=== PATIENT | male | born 1940 | race Caucasian/White ===

== ENCOUNTER 2024-03-21 11:43 | Inpatient (IN) | payer BC, OTHER ==
[~2024-03-21] VITALS: Ht 177.8 cm; Wt 71.7 kg
[2024-03-21 12:45] VITALS: PULSE 97; RESP 18; O2SAT 93
[2024-03-21 12:53] LABS: Basophils # (auto) 0 10 ^3/uL (0-0.2); Basophils % (auto) 0.2 % (0.0-2.0); Eosinophils # (auto) 0 10 ^3/uL (0-0.8); Hematocrit 30.5 % (41.0-53.0); Hemoglobin 9.8 g/dL (13.5-17.5); Lymphocytes % (auto) 7.8 % (10.0-50.0); Mean Corpuscular Hgb Conc. 32.1 g/dL (32.0-36.0); Mean Corpuscular Volume 96.7 fL (80.0-100.0); Monocytes # (auto) 1.4 10 ^3/uL (0-1.3); Monocytes % (auto) 10.8 % (0.0-12.0); Neutrophils # (auto) 10.6 10 ^3/uL (1.6-8.6); Neutrophils % (auto) 81.2 % (37.0-80.0); Red Blood Cells 3.15 10^6/uL (4.5-5.90); Red Cell Distribution Width 16.8 % (11.8-14.3)
[2024-03-21] MEDS: ONDANSETRON HCL 4 MG/2 ML VIAL IV ONE (12:58)
[2024-03-21] MEDS: methylPREDNISolone SOD SUCC 125 MG/2 ML VL IV ONE (12:58)
[2024-03-21] MEDS: FUROSEMIDE 40 MG/4 ML VIAL IV ONE (12:58)
[2024-03-21] MEDS: MORPHINE SULFATE INJ 2 MG/ml SYRG IV ONE (12:59)
[2024-03-21 13:11] LABS: Alanine Aminotransferase 12 U/L (7-40); Albumin 3.3 g/dL (3.2-4.8); Alkaline Phosphatase 77 U/L (46-116); Anion Gap 5 (5-15); Aspartate Aminotransferase 31 U/L (13-40); BUN/Creatinine Ratio 12.3 (10.0-20.0); Bilirubin, Total 0.3 mg/dL (0.2-1.0); Blood Urea Nitrogen 13 mg/dL (9-23); Calcium 9.1 mg/dL (8.5-10.1); Carbon Dioxide 23 mmol/L (20-30); Chloride 109 mmol/L (98-107); Glucose 104 mg/dL (74-106); Potassium 3.9 mmol/L (3.5-5.1); Sodium 137 mmol/L (136-145); Total Protein 6.9 g/dL (5.7-8.2)
[2024-03-21] MEDS: ALBUTEROL SULF 2.5 MG/0.5ML(0.5%) NEB SOLN NEB ONE (13:25)
[2024-03-21] MEDS: IPRATROPIUM BROM 0.5 MG/2.5ML INH SOL NEB ONE (13:26)
[2024-03-21 14:06] LABS: Urine Bacteria None Seen /hpf (None Seen)
[2024-03-21] MEDS: IOHEXOL 350 MG/ML 100ML IJ ONE (14:14)
[2024-03-21] MEDS ORDERED: ALBUTEROL SULF 2.5 MG/0.5ML(0.5%) NEB SOLN NEB SCH (14:15)
[2024-03-21] MEDS ORDERED: IPRATROPIUM BROM 0.5 MG/2.5ML INH SOL NEB SCH (14:15)
[2024-03-21 14:27] LABS: Urine Blood Negative /uL (Negative); Urine Clarity Clear (Clear); Urine Color Light-Yellow (Yellow); Urine Mucus FEW (None Seen); Urine Protein, UAD TRACE (Negative); Urine Specific Gravity 1.013 (1.001-1.035); Urine Urobilinogen Normal (Negative); Urine WBC 1 /hpf (0 - 3)
[2024-03-21 15:29] LABS: Base Excess -2.2 mmol/L (-2.0-2.0)
[2024-03-21] MEDS: methylPREDNISolone SOD SUCC 125 MG/2 ML VL IV SCH (15:29)
[2024-03-21 16:05] VITALS: BP 118/82; PULSE 89; RESP 16; TEMP 97.9; O2SAT 92
[2024-03-21 18:26] VITALS: PULSE 68; RESP 20; O2SAT 98
[2024-03-21] MEDS: IPRATROPIUM BROM 0.5 MG/2.5ML INH SOL NEB SCH (18:26)
[2024-03-21] MEDS: ALBUTEROL SULF 2.5 MG/0.5ML(0.5%) NEB SOLN NEB SCH (18:26)
[2024-03-21 18:36] VITALS: PULSE 74; RESP 20; O2SAT 100
[2024-03-21 21:54] VITALS: BP 125/57; PULSE 58; RESP 20; TEMP 97.6; O2SAT 97
[2024-03-21] MEDS: FUROSEMIDE 40 MG/4 ML VIAL IV SCH (22:20)
[2024-03-21] MEDS: SODIUM CHLOR 0.9% PF (SALINE LOCK) 10ML VIAL/SYR IV SCH (22:20)
[2024-03-21] MEDS: HYDROmorphone HCL 2 MG/ML VL/or syr IV PRN (22:21)
[2024-03-22] VITALS (13 sets, daily range): BP systolic 111–131; BP diastolic 58–66; PULSE 40–106; RESP 16–20; TEMP 97.3–98.2; O2SAT 91–100
[2024-03-22] MEDS: cefTRIAXone 1GM/50ML D5W 50 ML IV SCH (09:29)
[2024-03-22] MEDS: ENOXAPARIN SOD 40 MG/0.4 ML SYRINGE SC SCH (09:32)
[2024-03-22] MEDS: NICOTINE 14 MG/24HR TOPICAL PATCH TD SCH (09:33)
[2024-03-22] MEDS: HYDROcodone-ACET 5/325MG TAB PO PRN (11:27)
[2024-03-22] MEDS: AZITHROMYCIN 500MG/ 250ML 250 ML IV SCH (11:28)
[2024-03-22] MEDS: ENOXAPARIN SOD 80 MG/0.8ML SYRINGE SC SCH (21:05)
[2024-03-23] VITALS (16 sets, daily range): BP systolic 71–143; BP diastolic 63–79; PULSE 55–99; RESP 16–20; TEMP 97.6–98.3; O2SAT 91–98
[2024-03-23 08:32] LABS: INR 1.12 (0.9-1.15); Partial Thromboplastin Time 28.3 SEC (24.5-34.5); Prothrombin Time 11.8 sec (9.3-11.8)
[2024-03-23] MEDS: POTASSIUM CHL 20 Meq TABLET PO ONE (13:17)
[2024-03-23] MEDS: METOPROLOL TARTRATE 25 MG TAB PO SCH (13:18)
[2024-03-23 15:20] LABS: Body Fluid Red Blood Cells 1500 CUMM (0-2000)
[2024-03-23] MEDS: ONDANSETRON HCL 4 MG/2 ML VIAL IV PRN (16:22)
[2024-03-23 17:43] LABS: Body Fluid Polymorphonuclear 70 % (0-25)
[2024-03-23] MEDS: methylPREDNISolone SOD SUCC 40 MG/ML VL IV SCH (20:12)
[2024-03-24] VITALS (21 sets, daily range): BP systolic 109–130; BP diastolic 56–79; PULSE 52–102; RESP 16–24; TEMP 97.5–98.2; O2SAT 94–100
[2024-03-24 06:45] LABS: Chloride 104 mmol/L (98-107); Sodium 139 mmol/L (136-145)
[2024-03-24 06:46] LABS: Anion Gap 3 (5-15); Calcium 8.8 mg/dL (8.7-10.4); Carbon Dioxide 32 mmol/L (20-30)
[2024-03-24 06:49] LABS: Basophils # (auto) 0 10 ^3/uL (0-0.2); Eosinophils # (auto) 0 10 ^3/uL (0-0.8); Hematocrit 30.2 % (41.0-53.0); Hemoglobin 9.8 g/dL (13.5-17.5); Lymphocytes # (auto) 0.5 10 ^3/uL (0.4-5.4); Lymphocytes % (auto) 4.9 % (10.0-50.0); Mean Corpuscular Hemoglobin 30.8 pg (28.0-32.0); Mean Corpuscular Hgb Conc. 32.4 g/dL (32.0-36.0); Mean Corpuscular Volume 95.1 fL (80.0-100.0); Monocytes # (auto) 0.6 10 ^3/uL (0-1.3); Monocytes % (auto) 6.1 % (0.0-12.0); Neutrophils # (auto) 9.3 10 ^3/uL (1.6-8.6); Red Blood Cells 3.17 10^6/uL (4.5-5.90); Red Cell Distribution Width 16.6 % (11.8-14.3); White Blood Cell 10.5 10^3/uL (4.4-10.8)
[2024-03-24 06:51] LABS: BUN/Creatinine Ratio 32.1 (10.0-20.0); Blood Urea Nitrogen 34 mg/dL (9-23); Glucose 130 mg/dL (74-106); Magnesium 1.8 mg/dL (1.6-2.6)
[2024-03-24 07:14] LABS: Body Fluid White Blood Cells 114250 CUMM (0-200)
[2024-03-24 08:06] LABS: AFP Serum Tumor Marker <1.8 ng/mL (0.0-6.4); PSA Free <0.02 ng/mL; Prostate Specific Antigen <0.1 ng/mL (0.0-4.0)
[2024-03-24] MEDS: DOCUSATE SOD 100 MG CAP PO PRN (09:51)
[2024-03-24] MEDS: SACUBITRIL-VALSARTAN 24mg/26mg TAB PO SCH (09:52)
[2024-03-24] MEDS: POTASSIUM CHL 20 Meq TABLET PO SCH (09:52)
[2024-03-24] MEDS: PIPERACILLIN-TAZOB 3.375GM 100 ML IV SCH (14:07)
[2024-03-24] MEDS ORDERED: TAMS0.4C36 PO (15:07)
[2024-03-24] MEDS ORDERED: LOSA-534 PO (15:07)
[2024-03-24] MEDS ORDERED: CYAN100056 PO (15:07)
[2024-03-24] MEDS ORDERED: ATOR10TA52 PO (15:07)
[2024-03-24] MEDS ORDERED: ALEN70TA74 PO (15:07)
[2024-03-24] MEDS ORDERED: ACET300T57 PO (15:07)
[2024-03-24] MEDS ORDERED: FINA5TAB4 PO (15:07)
[2024-03-25] VITALS (16 sets, daily range): BP systolic 92–132; BP diastolic 45–60; PULSE 37–78; RESP 12–21; TEMP 97.3–98.9; O2SAT 90–100
[2024-03-25 07:09] LABS: Anion Gap 2 (5-15); Calcium 8.2 mg/dL (8.5-10.1); Carbon Dioxide 30 mmol/L (20-30); Chloride 107 mmol/L (98-107); Potassium 3.6 mmol/L (3.5-5.1); Sodium 139 mmol/L (136-145)
[2024-03-25 07:15] LABS: BUN/Creatinine Ratio 26.8 (10.0-20.0); Blood Urea Nitrogen 30 mg/dL (9-23); Glucose 146 mg/dL (74-106)
[2024-03-25] MEDS: FUROSEMIDE 40 MG/4 ML VIAL IV SCH (10:23)
[2024-03-25] MEDS: CARVEDILOL 3.125 MG TAB PO SCH (10:27)
[2024-03-25 15:19] LABS: Body Fluid Polymorphonuclear 70 % (0-25); Body Fluid Red Blood Cells 2280 CUMM (0-2000); Body Fluid White Blood Cells 183000 CUMM (0-200)
[2024-03-26] VITALS (12 sets, daily range): BP systolic 114–162; BP diastolic 63–82; PULSE 44–88; RESP 12–22; TEMP 97.5–99.1; O2SAT 93–100
[2024-03-26] MEDS: TEMAZEPAM 15 MG CAP PO ONE (01:12)
[2024-03-26] MEDS: LIDOCAINE 5% TOPICAL PATCH TOP ONE (11:38)
[2024-03-27] VITALS (18 sets, daily range): BP systolic 120–158; BP diastolic 50–88; PULSE 53–81; RESP 12–18; TEMP 97.3–98.3; O2SAT 93–100
[2024-03-27] MEDS: LIDOCAINE 5% TOPICAL PATCH TOP SCH (09:28)
[2024-03-28] VITALS (19 sets, daily range): BP systolic 96–149; BP diastolic 56–88; PULSE 54–101; RESP 14–18; TEMP 97.3–97.7; O2SAT 92–100
[2024-03-28 05:57] LABS: Anion Gap 6 (5-15); Carbon Dioxide 27 mmol/L (20-30); Chloride 106 mmol/L (98-107); Potassium 4.1 mmol/L (3.5-5.1); Sodium 139 mmol/L (136-145)
[2024-03-28 05:58] LABS: Calcium 9.2 mg/dL (8.5-10.1)
[2024-03-28 06:02] LABS: Glucose 154 mg/dL (74-106)
[2024-03-28 06:03] LABS: BUN/Creatinine Ratio 24.4 (10.0-20.0); Blood Urea Nitrogen 30 mg/dL (9-23)
[2024-03-28] MEDS: FUROSEMIDE 40 MG TAB PO SCH (12:48)
[2024-03-29] VITALS (14 sets, daily range): BP systolic 101–138; BP diastolic 56–85; PULSE 64–111; RESP 14–20; TEMP 97.4–98.1; O2SAT 94–100
[2024-03-29] MEDS: AMIODARONE HCL 200 MG TAB PO SCH (10:15)
[2024-03-29] MEDS: MORPHINE SULFATE INJ 2 MG/ml SYRG IV PRN (12:13)
[2024-03-30] VITALS (15 sets, daily range): BP systolic 93–114; BP diastolic 45–67; PULSE 58–76; RESP 14–18; TEMP 97.4–98.2; O2SAT 93–100
[2024-03-30 07:11] LABS: Alkaline Phosphatase 54 U/L (46-116); Anion Gap 6 (5-15); BUN/Creatinine Ratio 28.6 (10.0-20.0); Blood Urea Nitrogen 52 mg/dL (9-23); Calcium 8.9 mg/dL (8.5-10.1); Carbon Dioxide 27 mmol/L (20-30); Chloride 106 mmol/L (98-107); Glucose 142 mg/dL (74-106); Sodium 139 mmol/L (136-145)
[2024-03-30 07:12] LABS: Albumin 2.9 g/dL (3.2-4.8); Aspartate Aminotransferase 29 U/L (13-40)
[2024-03-30 07:13] LABS: Bilirubin, Total 0.4 mg/dL (0.2-1.0); Total Protein 5.4 g/dL (5.7-8.2)
[2024-03-30 07:16] LABS: Alanine Aminotransferase < 9 U/L (7-40)
[2024-03-30] MEDS: SODIUM CHLORIDE 0.9% 1,000 ML IV SCH (11:45)
[2024-03-30 12:48] LABS: Magnesium 2.4 mg/dL (1.6-2.6)
[2024-03-30] MEDS: methylPREDNISolone SOD SUCC 40 MG/ML VL IV SCH (21:34)
[2024-03-30] MEDS: CARVEDILOL 3.125 MG TAB PO SCH (22:00)
[2024-03-31] VITALS (13 sets, daily range): BP systolic 90–113; BP diastolic 40–65; PULSE 56–83; RESP 17–22; TEMP 97.4–98; O2SAT 91–100
[2024-03-31 05:29] LABS: Basophils # (auto) 0 10 ^3/uL (0-0.2); Basophils % (auto) 0.1 % (0.0-2.0); Eosinophils # (auto) 0 10 ^3/uL (0-0.8); Hemoglobin 7.2 g/dL (13.5-17.5); Lymphocytes # (auto) 0.8 10 ^3/uL (0.4-5.4); Monocytes # (auto) 0.4 10 ^3/uL (0-1.3); Nucleated Red Blood Cells % 0.1 %
[2024-03-31 05:32] LABS: Hematocrit 22.4 % (41.0-53.0); Lymphocytes % (auto) 5.5 % (10.0-50.0); Mean Corpuscular Hemoglobin 30.7 pg (28.0-32.0); Mean Corpuscular Hgb Conc. 32.2 g/dL (32.0-36.0); Mean Corpuscular Volume 95.3 fL (80.0-100.0); Monocytes % (auto) 2.5 % (0.0-12.0); Neutrophils # (auto) 14.2 10 ^3/uL (1.6-8.6); Neutrophils % (auto) 91.9 % (37.0-80.0); Red Blood Cells 2.35 10^6/uL (4.5-5.90); Red Cell Distribution Width 17.6 % (11.8-14.3); White Blood Cell 15.4 10^3/uL (4.4-10.8)
[2024-03-31 05:42] LABS: Chloride 108 mmol/L (98-107); Potassium 3.7 mmol/L (3.5-5.1); Sodium 139 mmol/L (136-145)
[2024-03-31 05:43] LABS: Anion Gap 4 (5-15); Calcium 8.1 mg/dL (8.5-10.1); Carbon Dioxide 27 mmol/L (20-30)
[2024-03-31 05:48] LABS: BUN/Creatinine Ratio 30.6 (10.0-20.0); Blood Urea Nitrogen 49 mg/dL (9-23); Glucose 145 mg/dL (74-106)
[2024-03-31] MEDS: ENOXAPARIN SOD 30 MG/0.3 ML SYRINGE SC ONE (14:39)
[2024-04-01] VITALS (17 sets, daily range): BP systolic 117–142; BP diastolic 55–69; PULSE 52–87; RESP 16–20; TEMP 97.5–98.8; O2SAT 93–100
[2024-04-01 05:37] LABS: Basophils # (auto) 0 10 ^3/uL (0-0.2); Eosinophils # (auto) 0 10 ^3/uL (0-0.8); Lymphocytes # (auto) 0.8 10 ^3/uL (0.4-5.4); Monocytes # (auto) 0.4 10 ^3/uL (0-1.3); Monocytes % (auto) 2.8 % (0.0-12.0); Nucleated Red Blood Cells % 0.1 %; Red Cell Distribution Width 17.4 % (11.8-14.3)
[2024-04-01 05:38] LABS: Anion Gap 4 (5-15); Calcium 8.1 mg/dL (8.5-10.1); Carbon Dioxide 26 mmol/L (20-30); Chloride 110 mmol/L (98-107); Potassium 3.7 mmol/L (3.5-5.1); Sodium 140 mmol/L (136-145)
[2024-04-01 05:42] LABS: Hematocrit 22.6 % (41.0-53.0); Hemoglobin 7.2 g/dL (13.5-17.5); Lymphocytes % (auto) 5.7 % (10.0-50.0); Mean Corpuscular Hgb Conc. 32.1 g/dL (32.0-36.0); Mean Corpuscular Volume 96.8 fL (80.0-100.0); Neutrophils # (auto) 12.7 10 ^3/uL (1.6-8.6); Neutrophils % (auto) 91.5 % (37.0-80.0); Red Blood Cells 2.33 10^6/uL (4.5-5.90); White Blood Cell 13.9 10^3/uL (4.4-10.8)
[2024-04-01 05:44] LABS: BUN/Creatinine Ratio 29.3 (10.0-20.0); Blood Urea Nitrogen 44 mg/dL (9-23); Glucose 137 mg/dL (74-106)
[2024-04-01 05:45] LABS: Magnesium 2.2 mg/dL (1.6-2.6)
[2024-04-01] MEDS ORDERED: AMIODARONE HCL 200 MG TAB PO SCH (09:00)
[2024-04-01] MEDS: ENOXAPARIN SOD 30 MG/0.3 ML SYRINGE SC SCH (09:11)
[2024-04-01] MEDS: LOPERAMIDE HCL 2 MG CAP/TAB PO PRN (21:02)
[2024-04-02] VITALS (18 sets, daily range): BP systolic 106–136; BP diastolic 40–69; PULSE 53–79; RESP 16–20; TEMP 97.7–98.5; O2SAT 93–98
[2024-04-02 06:13] LABS: Basophils # (auto) 0 10 ^3/uL (0-0.2); Basophils % (auto) 0.1 % (0.0-2.0); Eosinophils # (auto) 0 10 ^3/uL (0-0.8)
[2024-04-02 06:16] LABS: Lymphocytes # (auto) 0.7 10 ^3/uL (0.4-5.4); Lymphocytes % (auto) 5.1 % (10.0-50.0); Mean Corpuscular Hemoglobin 31.1 pg (28.0-32.0); Mean Corpuscular Hgb Conc. 31.7 g/dL (32.0-36.0); Mean Corpuscular Volume 98.2 fL (80.0-100.0); Monocytes # (auto) 0.4 10 ^3/uL (0-1.3); Monocytes % (auto) 2.7 % (0.0-12.0); Neutrophils # (auto) 12.4 10 ^3/uL (1.6-8.6); Neutrophils % (auto) 92.1 % (37.0-80.0); Red Blood Cells 2.14 10^6/uL (4.5-5.90); Red Cell Distribution Width 17.9 % (11.8-14.3); White Blood Cell 13.4 10^3/uL (4.4-10.8)
[2024-04-02 06:23] LABS: Anion Gap 7 (5-15); Carbon Dioxide 24 mmol/L (20-30); Chloride 111 mmol/L (98-107); Potassium 3.8 mmol/L (3.5-5.1); Sodium 142 mmol/L (136-145)
[2024-04-02 06:24] LABS: Calcium 8.1 mg/dL (8.7-10.4)
[2024-04-02 06:29] LABS: BUN/Creatinine Ratio 28.2 (10.0-20.0); Glucose 146 mg/dL (74-106)
[2024-04-02 06:31] LABS: Hemoglobin 6.6 g/dL (13.5-17.5)
[2024-04-02 06:34] LABS: Blood Urea Nitrogen 33 mg/dL (9-23)
[2024-04-02] MEDS: levoFLOXacin 500 MG TAB PO ONE (08:22)
[2024-04-03] VITALS (15 sets, daily range): BP systolic 144–154; BP diastolic 41–65; PULSE 53–72; RESP 17–20; TEMP 97.9–98.9; O2SAT 94–100
[2024-04-03 07:40] LABS: Basophils # (auto) 0 10 ^3/uL (0-0.2); Eosinophils # (auto) 0 10 ^3/uL (0-0.8); Hematocrit 27.3 % (41.0-53.0); Hemoglobin 8.7 g/dL (13.5-17.5); Lymphocytes # (auto) 0.7 10 ^3/uL (0.4-5.4); Lymphocytes % (auto) 4.4 % (10.0-50.0); Mean Corpuscular Hemoglobin 30.6 pg (28.0-32.0); Mean Corpuscular Hgb Conc. 31.9 g/dL (32.0-36.0); Mean Corpuscular Volume 95.8 fL (80.0-100.0); Monocytes # (auto) 0.4 10 ^3/uL (0-1.3); Monocytes % (auto) 2.2 % (0.0-12.0); Neutrophils # (auto) 15.9 10 ^3/uL (1.6-8.6); Neutrophils % (auto) 93.4 % (37.0-80.0); Red Blood Cells 2.85 10^6/uL (4.5-5.90); Red Cell Distribution Width 18.5 % (11.8-14.3); White Blood Cell 17.1 10^3/uL (4.4-10.8)
[2024-04-03 07:43] LABS: Anion Gap 7 (5-15); Calcium 8.5 mg/dL (8.5-10.1); Carbon Dioxide 23 mmol/L (20-30); Chloride 112 mmol/L (98-107); Potassium 3.8 mmol/L (3.5-5.1); Sodium 142 mmol/L (136-145)
[2024-04-03 07:49] LABS: BUN/Creatinine Ratio 22.6 (10.0-20.0); Blood Urea Nitrogen 24 mg/dL (9-23); Glucose 127 mg/dL (74-106)
[2024-04-03] MEDS: levoFLOXacin 250 MG TAB PO SCH (10:23)
[2024-04-03] MEDS: SODIUM CHLORIDE 0.9% 1,000 ML IV SCH (12:00)
[2024-04-03] MEDS: VANCOMYCIN HCL 125 MG CAP PO SCH (12:00)
[2024-04-03] MEDS: metroNIDAZOLE 500MG/100ML 100 ML IV SCH (13:46)
[2024-04-04] VITALS (19 sets, daily range): BP systolic 136–149; BP diastolic 43–75; PULSE 50–75; RESP 16–22; TEMP 97.6–98.6; O2SAT 92–100
[2024-04-04 06:20] LABS: Basophils # (auto) 0 10 ^3/uL (0-0.2); Basophils % (auto) 0.1 % (0.0-2.0); Eosinophils # (auto) 0.1 10 ^3/uL (0-0.8); Eosinophils % (auto) 0.3 % (0.0-7.0); Hematocrit 26.3 % (41.0-53.0); Hemoglobin 8.4 g/dL (13.5-17.5); Lymphocytes # (auto) 1.2 10 ^3/uL (0.4-5.4); Lymphocytes % (auto) 7.4 % (10.0-50.0); Mean Corpuscular Hemoglobin 30.5 pg (28.0-32.0); Mean Corpuscular Hgb Conc. 31.8 g/dL (32.0-36.0); Monocytes # (auto) 0.8 10 ^3/uL (0-1.3); Neutrophils # (auto) 14.7 10 ^3/uL (1.6-8.6); Neutrophils % (auto) 87.2 % (37.0-80.0); Red Blood Cells 2.74 10^6/uL (4.5-5.90); Red Cell Distribution Width 18.7 % (11.8-14.3); White Blood Cell 16.9 10^3/uL (4.4-10.8)
[2024-04-04 06:38] LABS: Anion Gap 2 (5-15); Calcium 8.4 mg/dL (8.5-10.1); Carbon Dioxide 25 mmol/L (20-30); Chloride 112 mmol/L (98-107); Potassium 4.9 mmol/L (3.5-5.1); Sodium 139 mmol/L (136-145)
[2024-04-04 06:44] LABS: BUN/Creatinine Ratio 22.1 (10.0-20.0); Blood Urea Nitrogen 23 mg/dL (9-23); Glucose 78 mg/dL (74-106)
[2024-04-04 06:45] LABS: Magnesium 1.8 mg/dL (1.6-2.6)
[2024-04-05] VITALS (14 sets, daily range): BP systolic 120–160; BP diastolic 55–71; PULSE 48–76; RESP 14–18; TEMP 97.7–98; O2SAT 94–100
[2024-04-05 07:31] LABS: Chloride 111 mmol/L (98-107); Potassium 4.5 mmol/L (3.5-5.1); Sodium 138 mmol/L (136-145)
[2024-04-05 07:32] LABS: Anion Gap 2 (5-15); Calcium 8.3 mg/dL (8.5-10.1); Carbon Dioxide 25 mmol/L (20-30)
[2024-04-05 07:37] LABS: BUN/Creatinine Ratio 18.9 (10.0-20.0); Blood Urea Nitrogen 17 mg/dL (9-23); Glucose 79 mg/dL (74-106)
[2024-04-05 07:38] LABS: Magnesium 1.8 mg/dL (1.6-2.6)
[2024-04-05 07:39] LABS: Basophils # (auto) 0 10 ^3/uL (0-0.2); Basophils % (auto) 0.1 % (0.0-2.0); Eosinophils # (auto) 0.2 10 ^3/uL (0-0.8); Eosinophils % (auto) 1.7 % (0.0-7.0); Hemoglobin 8.4 g/dL (13.5-17.5); Lymphocytes # (auto) 1.4 10 ^3/uL (0.4-5.4); Monocytes # (auto) 0.8 10 ^3/uL (0-1.3); Neutrophils # (auto) 10.5 10 ^3/uL (1.6-8.6); White Blood Cell 12.9 10^3/uL (4.4-10.8)
[2024-04-05 07:40] LABS: Hematocrit 26.4 % (41.0-53.0); Mean Corpuscular Hemoglobin 30.9 pg (28.0-32.0); Mean Corpuscular Hgb Conc. 31.9 g/dL (32.0-36.0); Mean Corpuscular Volume 96.8 fL (80.0-100.0); Monocytes % (auto) 6.4 % (0.0-12.0); Neutrophils % (auto) 80.8 % (37.0-80.0); Red Blood Cells 2.72 10^6/uL (4.5-5.90); Red Cell Distribution Width 19.6 % (11.8-14.3)
[2024-04-05] MEDS: levoFLOXacin 250 MG TAB PO ONE (12:07)
[2024-04-05] MEDS: SACUBITRIL-VALSARTAN 24mg/26mg TAB PO SCH (21:00)
[2024-04-06] VITALS (18 sets, daily range): BP systolic 126–141; BP diastolic 59–72; PULSE 61–76; RESP 14–20; TEMP 97.1–98.1; O2SAT 95–100
[2024-04-06] MEDS ORDERED: levoFLOXacin 500 MG TAB PO SCH (10:00)
[2024-04-06] MEDS: FLORASTOR (S. BOULARDII) 250 MG CAP PO SCH (12:59)
[2024-04-07] VITALS (16 sets, daily range): BP systolic 103–143; BP diastolic 45–76; PULSE 68–98; RESP 16–20; TEMP 97.8–98.3; O2SAT 74–100
[2024-04-07 05:36] LABS: Basophils # (auto) 0 10 ^3/uL (0-0.2); Basophils % (auto) 0.1 % (0.0-2.0); Eosinophils # (auto) 0.2 10 ^3/uL (0-0.8); Eosinophils % (auto) 1.7 % (0.0-7.0); Hematocrit 26.4 % (41.0-53.0); Hemoglobin 8.9 g/dL (13.5-17.5); Lymphocytes # (auto) 1.1 10 ^3/uL (0.4-5.4); Lymphocytes % (auto) 10.4 % (10.0-50.0); Mean Corpuscular Hemoglobin 32.4 pg (28.0-32.0); Mean Corpuscular Hgb Conc. 33.7 g/dL (32.0-36.0); Mean Corpuscular Volume 96.1 fL (80.0-100.0); Monocytes # (auto) 0.9 10 ^3/uL (0-1.3); Monocytes % (auto) 8.4 % (0.0-12.0); Neutrophils # (auto) 8.7 10 ^3/uL (1.6-8.6); Neutrophils % (auto) 79.4 % (37.0-80.0); Red Blood Cells 2.74 10^6/uL (4.5-5.90)
[2024-04-07 05:47] LABS: Alanine Aminotransferase 17 U/L (7-40); Albumin 2.1 g/dL (3.2-4.8); Alkaline Phosphatase 68 U/L (46-116); Anion Gap 3 (5-15); Aspartate Aminotransferase 33 U/L (13-40); BUN/Creatinine Ratio 16.7 (10.0-20.0); Blood Urea Nitrogen 11 mg/dL (9-23); Calcium 7.9 mg/dL (8.7-10.4); Carbon Dioxide 23 mmol/L (20-30); Chloride 112 mmol/L (98-107); Glucose 99 mg/dL (74-106); Magnesium 1.7 mg/dL (1.6-2.6); Potassium 3.9 mmol/L (3.5-5.1); Sodium 138 mmol/L (136-145)
[2024-04-07 05:48] LABS: Bilirubin, Total 0.7 mg/dL (0.2-1.0); Total Protein 4.2 g/dL (5.7-8.2)
[2024-04-07] MEDS: metroNIDAZOLE 500 MG TAB PO SCH (14:00)
[2024-04-08] VITALS (18 sets, daily range): BP systolic 118–136; BP diastolic 56–68; PULSE 59–90; RESP 14–18; TEMP 97.9–98.4; O2SAT 93–100
[2024-04-08] MEDS: MORPHINE SULFATE 4 MG/ML SYR/VIAL IV PRN (17:58)
[2024-04-09] VITALS (20 sets, daily range): BP systolic 122–158; BP diastolic 59–79; PULSE 63–103; RESP 14–22; TEMP 97.1–98.7; O2SAT 92–100
[2024-04-09 05:40] LABS: Basophils # (auto) 0 10 ^3/uL (0-0.2); Basophils % (auto) 0.4 % (0.0-2.0); Eosinophils # (auto) 0.2 10 ^3/uL (0-0.8); Hemoglobin 8.3 g/dL (13.5-17.5)
[2024-04-09 05:44] LABS: Eosinophils % (auto) 2.1 % (0.0-7.0); Hematocrit 25.4 % (41.0-53.0); Lymphocytes # (auto) 1.4 10 ^3/uL (0.4-5.4); Lymphocytes % (auto) 13.1 % (10.0-50.0); Mean Corpuscular Hemoglobin 31.8 pg (28.0-32.0); Mean Corpuscular Hgb Conc. 32.7 g/dL (32.0-36.0); Mean Corpuscular Volume 97.3 fL (80.0-100.0); Monocytes % (auto) 9.3 % (0.0-12.0); Neutrophils # (auto) 7.9 10 ^3/uL (1.6-8.6); Neutrophils % (auto) 75.1 % (37.0-80.0); Red Blood Cells 2.61 10^6/uL (4.5-5.90); White Blood Cell 10.5 10^3/uL (4.4-10.8)
[2024-04-09 05:49] LABS: Red Cell Distribution Width 20.9 % (11.8-14.3)
[2024-04-09 05:53] LABS: Anion Gap 3 (5-15); Carbon Dioxide 24 mmol/L (20-30); Chloride 112 mmol/L (98-107); Potassium 4.1 mmol/L (3.5-5.1); Sodium 139 mmol/L (136-145)
[2024-04-09 05:59] LABS: BUN/Creatinine Ratio 21.1 (10.0-20.0); Blood Urea Nitrogen 15 mg/dL (9-23); Glucose 96 mg/dL (74-106)
[2024-04-09 06:00] LABS: Magnesium 1.7 mg/dL (1.6-2.6)
[2024-04-09] MEDS: MAGNESIUM OXIDE 400 MG TAB PO ONE (13:02)
[2024-04-09] MEDS: MAGNESIUM OXIDE 400 MG TAB PO SCH (21:54)
[2024-04-10] VITALS (14 sets, daily range): BP systolic 109–128; BP diastolic 59–67; PULSE 72–89; RESP 16–19; TEMP 98–98.6; O2SAT 91–99
[2024-04-10] MEDS: ACETAMINOPHEN 325 MG TAB PO PRN (20:03)
[2024-04-11] VITALS (18 sets, daily range): BP systolic 122–150; BP diastolic 62–74; PULSE 56–93; RESP 16–21; TEMP 97.7–99; O2SAT 90–97
[2024-04-11 05:51] LABS: Basophils # (auto) 0 10 ^3/uL (0-0.2); Basophils % (auto) 0.5 % (0.0-2.0); Eosinophils # (auto) 0.1 10 ^3/uL (0-0.8); Hemoglobin 7.9 g/dL (13.5-17.5); Neutrophils # (auto) 6.9 10 ^3/uL (1.6-8.6); White Blood Cell 9.1 10^3/uL (4.4-10.8)
[2024-04-11 05:54] LABS: Eosinophils % (auto) 1.3 % (0.0-7.0); Hematocrit 24.1 % (41.0-53.0); Lymphocytes # (auto) 1.3 10 ^3/uL (0.4-5.4); Mean Corpuscular Hemoglobin 31.8 pg (28.0-32.0); Mean Corpuscular Hgb Conc. 32.8 g/dL (32.0-36.0); Monocytes # (auto) 0.8 10 ^3/uL (0-1.3); Monocytes % (auto) 8.5 % (0.0-12.0); Neutrophils % (auto) 75.7 % (37.0-80.0); Red Blood Cells 2.48 10^6/uL (4.5-5.90)
[2024-04-11 06:09] LABS: Anion Gap 2 (5-15); Carbon Dioxide 25 mmol/L (20-30); Chloride 113 mmol/L (98-107); Potassium 3.6 mmol/L (3.5-5.1); Sodium 140 mmol/L (136-145)
[2024-04-11 06:11] LABS: Calcium 8.5 mg/dL (8.7-10.4)
[2024-04-11 06:15] LABS: BUN/Creatinine Ratio 25.6 (10.0-20.0); Blood Urea Nitrogen 21 mg/dL (9-23); Glucose 107 mg/dL (74-106)
[2024-04-11 06:16] LABS: Magnesium 1.7 mg/dL (1.6-2.6)
[2024-04-12] VITALS (11 sets, daily range): BP systolic 118–138; BP diastolic 50–72; PULSE 58–105; RESP 18–21; TEMP 98.3–98.9; O2SAT 93–100
[2024-04-13] VITALS (19 sets, daily range): BP systolic 92–129; BP diastolic 56–79; PULSE 54–92; RESP 18–21; TEMP 98–99.2; O2SAT 92–99
[2024-04-14] VITALS (16 sets, daily range): BP systolic 111–134; BP diastolic 54–69; PULSE 59–107; RESP 16–20; TEMP 97.8–98.8; O2SAT 91–100
[2024-04-15] VITALS (13 sets, daily range): BP systolic 114–124; BP diastolic 49–65; PULSE 63–81; RESP 15–22; TEMP 97.3–99.1; O2SAT 90–96
[2024-04-16] VITALS (9 sets, daily range): BP systolic 120–145; BP diastolic 50–94; PULSE 56–72; RESP 14–18; TEMP 98.4–98.5; O2SAT 92–100
== END 2024-04-16 13:17 | DRG 871 ==
LOC: ER 11:43 → TELE 14:05 → TELE-CENTR 21:58 → CENTRAL 04-06 12:49 → TELE-CENTR 04-07 12:00
PROVIDERS: ADMIT Internal Medicine Geriatric Medicine; ATTEND Internal Medicine Geriatric Medicine
PROC: 0W9B3ZZ Drainage of Left Pleural Cavity, Percutaneous Approach (ICD-10-PCS; 2024-03-23)
PROC: 0W9B30Z Drainage of Left Pleural Cavity with Drainage Device, Percutaneous Approach (ICD-10-PCS; principal; 2024-03-25)
PROC: 30233N1 Transfusion of Nonautologous Red Blood Cells into Peripheral Vein, Percutaneous Approach (ICD-10-PCS; 2024-04-02)
DX: A41.9 Sepsis, unspecified organism (principal); I50.43 Acute on chronic combined systolic (congestive) and diastolic (congestive) heart failure; J86.9 Pyothorax without fistula; J15.69 Pneumonia due to other Gram-negative bacteria; J15.9 Unspecified bacterial pneumonia; J96.01 Acute respiratory failure with hypoxia; C78.00 Secondary malignant neoplasm of unspecified lung; J44.1 Chronic obstructive pulmonary disease with (acute) exacerbation; R18.8 Other ascites; I47.19 Other supraventricular tachycardia; A04.72 Enterocolitis due to Clostridium difficile, not specified as recurrent; N17.9 Acute kidney failure, unspecified; J44.0 Chronic obstructive pulmonary disease with (acute) lower respiratory infection; I11.0 Hypertensive heart disease with heart failure; C61 Malignant neoplasm of prostate; E11.9 Type 2 diabetes mellitus without complications; I48.0 Paroxysmal atrial fibrillation; D63.8 Anemia in other chronic diseases classified elsewhere; F17.210 Nicotine dependence, cigarettes, uncomplicated; R91.1 Solitary pulmonary nodule; R59.1 Generalized enlarged lymph nodes; Z85.46 Personal history of malignant neoplasm of prostate; Z79.899 Other long term (current) drug therapy; Z85.038 Personal history of other malignant neoplasm of large intestine
CPT/HCPCS: 36415; 36600; 71045; 71250; 71275; 76604; 76942; 80048; 80053; 81001; 82105; 82270; 82378; 82565; 82805; 83735; 83880; 83986; 84154; 84484; 85025; 85049; 85610; 85730; 86301; 86850; 86900; 86901; 86920; 87040; 87076; 87077; 87205; 87493; 89051; 93005; 93306; 93970; 94640; 96374; 96375; 97110; 97116; 97163; 97530; 99291; G0378; J2405; J2543; J3490

== ENCOUNTER 2024-04-21 02:10 | Inpatient (IN) | payer OTHER ==
[2024-04-21] VITALS (8 sets, daily range): BP systolic 128; BP diastolic 74; PULSE 87–128; RESP 22–31; TEMP 98.7; O2SAT 92–100
[~2024-04-21] VITALS: Ht 188 cm; Wt 73.0 kg
[~2024-04-21 02:10] MED LIST: ACET300T57 PO; ALEN70TA74 PO; ATOR10TA52 PO; CYAN100056 PO; FINA5TAB4 PO; LOSA-534 PO; TAMS0.4C36 PO
[2024-04-21 02:55] LABS: Basophils # (auto) 0.1 10 ^3/uL (0-0.2); Basophils % (auto) 1.1 % (0.0-2.0); Eosinophils # (auto) 0 10 ^3/uL (0-0.8); Eosinophils % (auto) 0.4 % (0.0-7.0); Hematocrit 29.2 % (41.0-53.0); Hemoglobin 9.7 g/dL (13.5-17.5); Lymphocytes # (auto) 0.9 10 ^3/uL (0.4-5.4); Mean Corpuscular Hemoglobin 32.7 pg (28.0-32.0); Mean Corpuscular Volume 99.2 fL (80.0-100.0); Monocytes % (auto) 14.8 % (0.0-12.0); Neutrophils % (auto) 70.7 % (37.0-80.0); Red Blood Cells 2.95 10^6/uL (4.5-5.90)
[2024-04-21 03:01] LABS: Red Cell Distribution Width 22.2 % (11.8-14.3)
[2024-04-21 03:02] LABS: Alanine Aminotransferase 10 U/L (7-40); Albumin 2.7 g/dL (3.2-4.8); Alkaline Phosphatase 86 U/L (46-116); Anion Gap 5 (5-15); Aspartate Aminotransferase 29 U/L (13-40); BUN/Creatinine Ratio 13.2 (10.0-20.0); Bilirubin, Total 0.6 mg/dL (0.2-1.0); Blood Urea Nitrogen 12 mg/dL (9-23); Calcium 9.1 mg/dL (8.7-10.4); Carbon Dioxide 25 mmol/L (20-30); Chloride 108 mmol/L (98-107); Glucose 112 mg/dL (74-106); Magnesium 1.7 mg/dL (1.6-2.6); Potassium 3.8 mmol/L (3.5-5.1); Sodium 138 mmol/L (136-145); Total Protein 5.3 g/dL (5.7-8.2)
[2024-04-21 03:10] LABS: INR 1.02 (0.9-1.15); Partial Thromboplastin Time 24.8 SEC (24.5-34.5); Prothrombin Time 10.8 sec (9.3-11.8)
[2024-04-21 04:20] LABS: Urine Bacteria None Seen /hpf (None Seen)
[2024-04-21 04:34] LABS: Urine Blood Negative /uL (Negative); Urine Clarity Clear (Clear); Urine Color Yellow (Yellow); Urine Protein, UAD TRACE (Negative); Urine Specific Gravity 1.016 (1.001-1.035); Urine Urobilinogen Normal (Negative); Urine WBC 1 /hpf (0 - 3); Urine pH 5.5 (5.0-9.0)
[2024-04-21] MEDS: levoFLOXacin 500MG 100 ML IV ONE (04:40)
[2024-04-21 04:54] LABS: Base Excess 3.7 mmol/L (-2.0-2.0)
[2024-04-21] MEDS: methylPREDNISolone SOD SUCC 125 MG/2 ML VL IV ONE (05:24)
[2024-04-21] MEDS: IPRATROPIUM BROM 0.5 MG/2.5ML INH SOL NEB ONE ×2 (05:45→07:57)
[2024-04-21] MEDS: ALBUTEROL SULF 2.5 MG/0.5ML(0.5%) NEB SOLN NEB ONE ×2 (05:45→07:57)
[2024-04-21] MEDS ORDERED: PPN PER PHARMACY 0 ML IV SCH (07:30)
[2024-04-21] MEDS ORDERED: ONDANSETRON HCL 4 MG/2 ML VIAL IV PRN (07:30)
[2024-04-21] MEDS ORDERED: NITROGLYCERIN 0.4 MG SL TAB SL PRN (07:30)
[2024-04-21] MEDS: cefTRIAXone 1GM/50ML D5W 50 ML IV SCH (08:49)
[2024-04-21] MEDS: ENOXAPARIN SOD 40 MG/0.4 ML SYRINGE SC SCH (10:10)
[2024-04-21] MEDS: AZITHROMYCIN 500MG/ 250ML 250 ML IV SCH (10:10)
[2024-04-21] MEDS: ASPirin 81 mg TAB PO SCH (11:33)
[2024-04-21] MEDS: ATORVASTATIN 20 MG TAB PO ONE (11:33)
[2024-04-21] MEDS: SODIUM CHLORIDE 0.9% 1,000 ML IV SCH (15:00)
[2024-04-21] MEDS: ALBUTEROL SULF 2.5 MG/0.5ML(0.5%) NEB SOLN NEB PRN (19:57)
[2024-04-21] MEDS: PPN PER PHARMACY IV NR (20:00)
[2024-04-22] VITALS (50 sets, daily range): BP systolic 103–170; BP diastolic 44–89; PULSE 60–142; RESP 17–33; TEMP 97–99.5; O2SAT 82–100
[2024-04-22 05:30] LABS: Basophils # (auto) 0 10 ^3/uL (0-0.2); Basophils % (auto) 0.2 % (0.0-2.0); Eosinophils # (auto) 0 10 ^3/uL (0-0.8); Eosinophils % (auto) 0.1 % (0.0-7.0); Hematocrit 30.2 % (41.0-53.0); Hemoglobin 9.7 g/dL (13.5-17.5); Lymphocytes % (auto) 13.1 % (10.0-50.0); Mean Corpuscular Hemoglobin 32.7 pg (28.0-32.0); Monocytes # (auto) 1.4 10 ^3/uL (0-1.3); Neutrophils # (auto) 5.2 10 ^3/uL (1.6-8.6); Neutrophils % (auto) 68.6 % (37.0-80.0); Red Blood Cells 2.96 10^6/uL (4.5-5.90); White Blood Cell 7.5 10^3/uL (4.4-10.8)
[2024-04-22 05:33] LABS: Red Cell Distribution Width 22.1 % (11.8-14.3)
[2024-04-22 05:53] LABS: Alanine Aminotransferase 10 U/L (7-40); Albumin 2.8 g/dL (3.2-4.8); Alkaline Phosphatase 81 U/L (46-116); Anion Gap 6 (5-15); Aspartate Aminotransferase 29 U/L (13-40); BUN/Creatinine Ratio 15.5 (10.0-20.0); Blood Urea Nitrogen 13 mg/dL (9-23); Calcium 9.2 mg/dL (8.7-10.4); Carbon Dioxide 25 mmol/L (20-30); Chloride 108 mmol/L (98-107); Glucose 106 mg/dL (74-106); Phosphorus 3.7 mg/dL (2.4-5.1); Potassium 4.2 mmol/L (3.5-5.1); Sodium 139 mmol/L (136-145)
[2024-04-22 05:54] LABS: Total Protein 5.5 g/dL (5.7-8.2)
[2024-04-22 05:56] LABS: Bilirubin, Total 0.4 mg/dL (0.2-1.0)
[2024-04-22] MEDS ORDERED: VANCOMYCIN PER PHARMACY 0 MG IV SCH (09:45)
[2024-04-22] MEDS: MEROPENEM 1GM IVPB 50 ML IV ONE (09:45)
[2024-04-22 10:28] LABS: Base Excess -0.4 mmol/L (-2.0-2.0)
[2024-04-22] MEDS: VANCOMYCIN 1GM/200ML 200 ML IV ONE (10:50)
[2024-04-22] MEDS: FUROSEMIDE 40 MG/4 ML VIAL IV ONE (10:51)
[2024-04-22] MEDS ORDERED: TPN PER PHARMACY 0 ML IV SCH (12:45)
[2024-04-22 13:21] LABS: Base Excess -1.4 mmol/L (-2.0-2.0)
[2024-04-22] MEDS: LIDOCAINE 1% (LOCAL ANESTH.) PF 5ml SDV ID ONE (13:45)
[2024-04-22] MEDS: MEROPENEM 1GM IVPB 50 ML IV SCH (13:55)
[2024-04-22] MEDS ORDERED: VANCOMYCIN 1GM/200ML 200 ML IV SCH (14:00)
[2024-04-22] MEDS: PPN PER PHARMACY IV NR (20:54)
[2024-04-22] MEDS: CARVEDILOL 3.125 MG TAB PO SCH (21:06)
[2024-04-22] MEDS: SACUBITRIL-VALSARTAN 24mg/26mg TAB PO SCH (21:06)
[2024-04-22] MEDS: SODIUM CHLOR 0.9% PF (SALINE LOCK) 10ML VIAL/SYR IV SCH (22:05)
[2024-04-23] VITALS (48 sets, daily range): BP systolic 107–140; BP diastolic 49–86; PULSE 40–155; RESP 15–30; TEMP 97.2–98.9; O2SAT 91–100
[2024-04-23] MEDS: ACCU-CHEK COMFORT CURVE STRIP VI SCH
[2024-04-23] MEDS ORDERED: DEXTROSE (50%) 50ML SYRG IV SCH
[2024-04-23] MEDS: InsuLIN REG 1unit/0.01ml Soln (100units/ml) SC SCH
[2024-04-23] MEDS: VANCOMYCIN 1GM/200ML 200 ML IV SCH (01:07)
[2024-04-23 05:47] LABS: Basophils # (auto) 0 10 ^3/uL (0-0.2); Basophils % (auto) 0.2 % (0.0-2.0); Eosinophils # (auto) 0 10 ^3/uL (0-0.8); Eosinophils % (auto) 0.1 % (0.0-7.0); Mean Corpuscular Hgb Conc. 30.9 g/dL (32.0-36.0); Monocytes # (auto) 1.6 10 ^3/uL (0-1.3); Nucleated Red Blood Cells % 0.1 %
[2024-04-23 05:51] LABS: Hematocrit 33.2 % (41.0-53.0); Hemoglobin 10.3 g/dL (13.5-17.5); Lymphocytes % (auto) 10.7 % (10.0-50.0); Mean Corpuscular Hemoglobin 32.8 pg (28.0-32.0); Mean Corpuscular Volume 106.1 fL (80.0-100.0); Monocytes % (auto) 15.9 % (0.0-12.0); Neutrophils # (auto) 7.2 10 ^3/uL (1.6-8.6); Neutrophils % (auto) 73.1 % (37.0-80.0); Red Blood Cells 3.13 10^6/uL (4.5-5.90); Red Cell Distribution Width 21.5 % (11.8-14.3); White Blood Cell 9.8 10^3/uL (4.4-10.8)
[2024-04-23 05:56] LABS: Alanine Aminotransferase 10 U/L (7-40); Albumin 2.9 g/dL (3.2-4.8); Alkaline Phosphatase 80 U/L (46-116); Anion Gap 5 (5-15); Aspartate Aminotransferase 33 U/L (13-40); BUN/Creatinine Ratio 17.5 (10.0-20.0); Blood Urea Nitrogen 14 mg/dL (9-23); Calcium 9.1 mg/dL (8.5-10.1); Carbon Dioxide 25 mmol/L (20-30); Chloride 109 mmol/L (98-107); Glucose 107 mg/dL (74-106); Magnesium 1.9 mg/dL (1.6-2.6); Potassium 3.8 mmol/L (3.5-5.1); Sodium 139 mmol/L (136-145); Triglycerides 165 mg/dL (< 150)
[2024-04-23 05:57] LABS: Bilirubin, Total 0.4 mg/dL (0.2-1.0); Phosphorus 3.2 mg/dL (2.4-5.1); Total Protein 5.9 g/dL (5.7-8.2)
[2024-04-23 11:00] LABS: Triglycerides 165 mg/dL (< 150)
[2024-04-23 11:01] LABS: LDL Cholesterol 100 mg/dL (< 100)
[2024-04-23 11:02] LABS: Cholesterol 178 mg/dL (< 200); HDL Cholesterol 46 mg/dL (40-59)
[2024-04-23] MEDS: METOPROLOL TARTRATE 1MG/1ML-5ML VIAL IV PRN (13:37)
[2024-04-23] MEDS ORDERED: CARV6.2551 PO (17:31)
[2024-04-23] MEDS: TPN PER PHARMACY IV NR (21:11)
[2024-04-24] VITALS (41 sets, daily range): BP systolic 106–140; BP diastolic 45–82; PULSE 59–127; RESP 16–30; TEMP 98–99.6; O2SAT 85–100
[2024-04-24 05:12] LABS: Basophils # (auto) 0 10 ^3/uL (0-0.2); Basophils % (auto) 0.6 % (0.0-2.0); Eosinophils # (auto) 0.1 10 ^3/uL (0-0.8); Eosinophils % (auto) 0.7 % (0.0-7.0); Hematocrit 27.9 % (41.0-53.0); Hemoglobin 9.1 g/dL (13.5-17.5); Lymphocytes # (auto) 0.8 10 ^3/uL (0.4-5.4); Lymphocytes % (auto) 10.6 % (10.0-50.0); Mean Corpuscular Hemoglobin 32.3 pg (28.0-32.0); Mean Corpuscular Hgb Conc. 32.4 g/dL (32.0-36.0); Mean Corpuscular Volume 99.6 fL (80.0-100.0); Monocytes # (auto) 1.1 10 ^3/uL (0-1.3); Monocytes % (auto) 13.6 % (0.0-12.0); Neutrophils # (auto) 5.8 10 ^3/uL (1.6-8.6); Neutrophils % (auto) 74.5 % (37.0-80.0); Nucleated Red Blood Cells % 0.1 %; Red Cell Distribution Width 20.5 % (11.8-14.3); White Blood Cell 7.7 10^3/uL (4.4-10.8)
[2024-04-24 05:25] LABS: Alanine Aminotransferase 9 U/L (7-40); Albumin 2.6 g/dL (3.2-4.8); Alkaline Phosphatase 67 U/L (46-116); Anion Gap 3 (5-15); Aspartate Aminotransferase 22 U/L (13-40); BUN/Creatinine Ratio 36.2 (10.0-20.0); Blood Urea Nitrogen 25 mg/dL (9-23); Carbon Dioxide 30 mmol/L (20-30); Chloride 107 mmol/L (98-107); Glucose 142 mg/dL (74-106); Magnesium 1.9 mg/dL (1.6-2.6); Phosphorus 1.7 mg/dL (2.4-5.1); Potassium 3.1 mmol/L (3.5-5.1); Sodium 140 mmol/L (136-145)
[2024-04-24 05:26] LABS: Bilirubin, Total 0.3 mg/dL (0.2-1.0); Total Protein 5.2 g/dL (5.7-8.2)
[2024-04-24] MEDS: POTASSIUM CHL 20MEQ/100ML 100 ML IV SCH (07:49)
[2024-04-24] MEDS: FUROSEMIDE 40 MG/4 ML VIAL IV SCH (08:48)
[2024-04-24] MEDS: POTASSIUM PHOSPHATE 22 MEQ in SODIUM CHL 0.9% 100 ML IV ONE (12:21)
[2024-04-24] MEDS: TPN PER PHARMACY IV NR (20:22)
[2024-04-25] VITALS (41 sets, daily range): BP systolic 111–159; BP diastolic 47–87; PULSE 58–148; RESP 22–34; TEMP 97.5–99; O2SAT 95–100
[2024-04-25 06:14] LABS: Basophils # (auto) 0 10 ^3/uL (0-0.2); Basophils % (auto) 0.4 % (0.0-2.0); Eosinophils # (auto) 0.1 10 ^3/uL (0-0.8); Eosinophils % (auto) 0.9 % (0.0-7.0); Hematocrit 28.6 % (41.0-53.0); Hemoglobin 9.4 g/dL (13.5-17.5); Lymphocytes # (auto) 0.9 10 ^3/uL (0.4-5.4); Lymphocytes % (auto) 8.9 % (10.0-50.0); Mean Corpuscular Hemoglobin 32.4 pg (28.0-32.0); Mean Corpuscular Hgb Conc. 32.7 g/dL (32.0-36.0); Mean Corpuscular Volume 98.9 fL (80.0-100.0); Monocytes # (auto) 1.5 10 ^3/uL (0-1.3); Monocytes % (auto) 14.4 % (0.0-12.0); Neutrophils # (auto) 7.6 10 ^3/uL (1.6-8.6); Neutrophils % (auto) 75.4 % (37.0-80.0); Nucleated Red Blood Cells % 0.1 %; Red Blood Cells 2.89 10^6/uL (4.5-5.90); Red Cell Distribution Width 20.3 % (11.8-14.3); White Blood Cell 10.1 10^3/uL (4.4-10.8)
[2024-04-25 06:34] LABS: Albumin 2.7 g/dL (3.2-4.8); Alkaline Phosphatase 79 U/L (46-116); Anion Gap 2 (5-15); Aspartate Aminotransferase 19 U/L (13-40); BUN/Creatinine Ratio 45.2 (10.0-20.0); Bilirubin, Total 0.3 mg/dL (0.2-1.0); Blood Urea Nitrogen 28 mg/dL (9-23); Calcium 8.8 mg/dL (8.5-10.1); Carbon Dioxide 31 mmol/L (20-30); Chloride 108 mmol/L (98-107); Glucose 114 mg/dL (74-106); Magnesium 1.9 mg/dL (1.6-2.6); Phosphorus 2.7 mg/dL (2.4-5.1); Potassium 3.7 mmol/L (3.5-5.1); Sodium 141 mmol/L (136-145); Total Protein 5.3 g/dL (5.7-8.2)
[2024-04-25 06:36] LABS: Alanine Aminotransferase < 9 U/L (7-40)
[2024-04-25 07:11] LABS: Base Excess 0.9 mmol/L (-2.0-2.0)
[2024-04-25] MEDS: hydrALAZINE HCL 20 MG/ML VL IV PRN (13:08)
[2024-04-25] MEDS: TPN PER PHARMACY IV NR (20:13)
[2024-04-26] VITALS (51 sets, daily range): BP systolic 68–157; BP diastolic 26–99; PULSE 51–138; RESP 11–42; TEMP 97.5–98; O2SAT 28–100
[2024-04-26 05:38] LABS: Basophils # (auto) 0 10 ^3/uL (0-0.2); Basophils % (auto) 0.2 % (0.0-2.0); Eosinophils # (auto) 0 10 ^3/uL (0-0.8); Eosinophils % (auto) 0.1 % (0.0-7.0); Hematocrit 30.2 % (41.0-53.0); Hemoglobin 9.7 g/dL (13.5-17.5); Lymphocytes # (auto) 0.9 10 ^3/uL (0.4-5.4); Lymphocytes % (auto) 6.1 % (10.0-50.0); Mean Corpuscular Hemoglobin 32.1 pg (28.0-32.0); Mean Corpuscular Hgb Conc. 32.2 g/dL (32.0-36.0); Mean Corpuscular Volume 99.7 fL (80.0-100.0); Monocytes # (auto) 2.2 10 ^3/uL (0-1.3); Monocytes % (auto) 15.1 % (0.0-12.0); Neutrophils # (auto) 11.2 10 ^3/uL (1.6-8.6); Neutrophils % (auto) 78.5 % (37.0-80.0); Red Blood Cells 3.03 10^6/uL (4.5-5.90); White Blood Cell 14.3 10^3/uL (4.4-10.8)
[2024-04-26 05:54] LABS: Alanine Aminotransferase 10 U/L (7-40); Alkaline Phosphatase 76 U/L (46-116); Anion Gap 4 (5-15); BUN/Creatinine Ratio 52.1 (10.0-20.0); Blood Urea Nitrogen 37 mg/dL (9-23); Calcium 9.5 mg/dL (8.7-10.4); Carbon Dioxide 29 mmol/L (20-30); Chloride 106 mmol/L (98-107); Glucose 153 mg/dL (74-106); Magnesium 2.2 mg/dL (1.6-2.6); Potassium 3.8 mmol/L (3.5-5.1); Sodium 139 mmol/L (136-145)
[2024-04-26 05:55] LABS: Albumin 2.9 g/dL (3.2-4.8); Aspartate Aminotransferase 19 U/L (13-40)
[2024-04-26 05:56] LABS: Bilirubin, Total 0.4 mg/dL (0.2-1.0); Phosphorus 2.9 mg/dL (2.4-5.1); Total Protein 5.9 g/dL (5.7-8.2)
[2024-04-26] MEDS: METOPROLOL TARTRATE 1MG/1ML-5ML VIAL IV PRN (06:04)
[2024-04-26 06:10] LABS: Base Excess -0.1 mmol/L (-2.0-2.0)
[2024-04-26] MEDS: MORPHINE SULFATE INJ 2 MG/ml SYRG IV PRN (08:00)
[2024-04-26] MEDS: POTASSIUM CHL 20MEQ/100ML 100 ML IV ONE (08:22)
[2024-04-26] MEDS: LORazepam 2MG/ML-1ML VIAL IV ONE (09:40)
[2024-04-26] MEDS: DOPamine 1600MCG/ML D5W 250 ML IV ONE (10:30)
[2024-04-26] MEDS: DOPamine 1600MCG/ML D5W 250 ML IV SCH (10:36)
[2024-04-26] MEDS: NOREPINEPHRINE 8 MG/250ML KIT 250 ML IV ONE (10:51)
[2024-04-26] MEDS: VASOPRESSIN 20 UNIT/ML ONE (10:51)
[2024-04-26] MEDS: VASOPRESSIN 20 UNITS in SODIUM CHL 0.9% 99 ML IV SCH (10:55)
[2024-04-26] MEDS: NOREPINEPHRINE 8 MG/250ML KIT 250 ML IV SCH (11:00)
[2024-04-26] MEDS ORDERED: PHENYLEPHRINE IV 250 ML IV SCH (11:15)
[2024-04-26] MEDS ORDERED: EPINEPHrine HCL 250 ML IV SCH (11:15)
[2024-04-26] MEDS ORDERED: MORPHINE SULFATE INJ 2 MG/ml SYRG IV PRN (12:30)
[2024-04-26] MEDS ORDERED: LORazepam 2MG/ML-1ML VIAL IV PRN (12:30)
[2024-04-26] MEDS ORDERED: FUROSEMIDE 40 MG/4 ML VIAL IV ONE (14:00)
[2024-04-26] MEDS ORDERED: TPN PER PHARMACY IV NR (20:00)
== END 2024-04-26 14:13 | DRG 64 ==
LOC: ER 02:10 → EDBD 02:10 → TELE 07:30 → DOU IN ICU 04-22 03:00 → ICU CENTRL 04-26 10:43
PROVIDERS: ADMIT Nurse Practitioner; ATTEND Internal Medicine Geriatric Medicine
PROC: 02HV33Z Insertion of Infusion Device into Superior Vena Cava, Percutaneous Approach (ICD-10-PCS; 2024-04-22)
PROC: B548ZZA Ultrasonography of Superior Vena Cava, Guidance (ICD-10-PCS; 2024-04-22)
PROC: 5A09457 Assistance with Respiratory Ventilation, 24-96 Consecutive Hours, Continuous Positive Airway Pressure (ICD-10-PCS; 2024-04-22)
PROC: 0W993ZZ Drainage of Right Pleural Cavity, Percutaneous Approach (ICD-10-PCS; principal; 2024-04-23)
PROC: 5A09457 Assistance with Respiratory Ventilation, 24-96 Consecutive Hours, Continuous Positive Airway Pressure (ICD-10-PCS; 2024-04-24)
DX: I63.9 Cerebral infarction, unspecified (principal); G93.41 Metabolic encephalopathy; J18.9 Pneumonia, unspecified organism; J96.21 Acute and chronic respiratory failure with hypoxia; J96.22 Acute and chronic respiratory failure with hypercapnia; N17.0 Acute kidney failure with tubular necrosis; J44.1 Chronic obstructive pulmonary disease with (acute) exacerbation; E44.0 Moderate protein-calorie malnutrition; E87.29 Other acidosis; J44.0 Chronic obstructive pulmonary disease with (acute) lower respiratory infection; G93.1 Anoxic brain damage, not elsewhere classified; J91.8 Pleural effusion in other conditions classified elsewhere; R47.01 Aphasia; I11.0 Hypertensive heart disease with heart failure; I48.91 Unspecified atrial fibrillation; I50.9 Heart failure, unspecified; E11.9 Type 2 diabetes mellitus without complications; D63.8 Anemia in other chronic diseases classified elsewhere; I49.3 Ventricular premature depolarization; Z66 Do not resuscitate; E87.6 Hypokalemia; E83.42 Hypomagnesemia; E83.39 Other disorders of phosphorus metabolism; E86.0 Dehydration; Z79.899 Other long term (current) drug therapy; Z79.82 Long term (current) use of aspirin; Z85.46 Personal history of malignant neoplasm of prostate; Z68.20 Body mass index [BMI] 20.0-20.9, adult; Z51.5 Encounter for palliative care; Z86.19 Personal history of other infectious and parasitic diseases
CPT/HCPCS: 32555; 36415; 36569; 36600; 70450; 70545; 70551; 71045; 80053; 80061; 80202; 81001; 82805; 82962; 83735; 83880; 84100; 84478; 84484; 85025; 85610; 85730; 87040; 87081; 87086; 87493; 93005; 93306; 93886; 94640; 94644; 94660; 95819; 99291; G0378; J1815; J1956; J2185; J3480